=== PATIENT | male | born 1955 | race Caucasian/White ===

== ENCOUNTER 2019-08-14 14:07 | Observation (INO) ==
--- NOTE | 2019-08-14 17:14 | PROVIDER DOCUMENTATION ---
HPI-Screening - General Chief Complaint: Dizziness Stated Complaint: vertigo, needs fluids, treated for flu Time Seen by Provider: 08/14/19 16:56 Source: patient Allergies/Adverse Reactions: Allergies Allergy/AdvReac Type Severity Reaction Status Date / Time Penicillins Allergy Fever Verified 08/20/15 22:30 erythromycin base AdvReac NAUSEA/VOMI Verified 08/20/15 22:30 TING Home Medications: Home Medication List Medication Instructions Recorded Confirmed Last Taken Type Aspirin [Aspirin EC] 81 mg PO DAILY 08/20/15 08/20/15 08/20/15 History Carvedilol 12.5 mg PO DAILY 08/20/15 08/20/15 08/20/15 History Colchicine [Colcrys] 1 tab PO DAILY 08/20/15 08/20/15 08/20/15 History Liraglutide [Victoza] 0.6 mg IM DAILY 08/20/15 08/20/15 08/20/15 History Metformin [Glucophage] 1,000 mg PO BID 08/20/15 08/20/15 08/20/15 History Cephalexin [Keflex] 500 mg PO TID #30 cap 12/17/17 Unknown Rx Hydrocodone/Acetaminophen 1 ea PO Q6H PRN #6 tab 12/17/17 Unknown Rx [Hydrocodon-Acetaminophen 5-325] Patient arrived via EMS?: No HPI: Patient is a 63 yowm who complains of dizziness and n/v/d since yesterday. States was diagnosed with influenza 1.5 weeks ago. States his pcp called in abx yesterday (Levaquin) because his cough was worsening. States he has a productive cough with yellow sputum. Pt has not started the Levaquin. Denies fever or any other complaints. Pt is non-toxic in appearance. Physical Exam-Screening - CONSTITUTIONAL General Appearance: alert, no apparent distress. negative: lethargic, slow to respond - EYES Eyes: PERRL/EOMI, pink conjunctivae - HEAD, EARS, NOSE, MOUTH & THROAT HENMT: normocephalic/atraumatic, moist mucous membranes, normal ENT inspection, TMs normal, pharynx normal - NECK Neck: full range of motion, supple, normal inspection - RESPIRATORY Respiratory: chest non-tender, lungs clear, normal breath sounds, no pleuratic chest pain, no respiratory distress, no accessory muscle use - CARDIOVASCULAR Cardiovascular: normal peripheral pulses, regular rate, rhythm, no gallop, no murmur - GASTROINTESTINAL (ABDOMEN) Abdominal Exam: normal bowel sounds, soft, tenderness (Mild diffuse). negative: guarding, rigid, rebound - SKIN Integumentary: normal color, warm/dry. negative: cyanosis, diaphoresis, jaundice, mottled, pallor - NEUROLOGIC Neurologic: grossly normal, no motor/sensory deficits - PSYCHIATRIC Psych/Mental Status: normal mood/affect, normal thought content, normal thought process, oriented x 3 Screening Depart - Departure ED Screening Disposition: Continued in ED for Treatment Referrals and Follow-Ups: Johnathon Hernandez MD [Primary Care Provider] - Attestation - Physician/ KAYY Attestation Patient care was provided by Advanced Practice Provider:: Yes Advanced Practice Provider:: Aria Fitzgerald Advanced Practice Provider documentation review:: The Mid-level provider documentation, treatment plan and medical decision making was reviewed by the physician who agrees with all treatment and medical decision making by the MLP. The physician spent face to face time with patient:: No Advanced Practice Provider documentation review:: Supervising physician onsite and consulted in the evaluation and care of this patient. The physician did not have a face to face encounter with the patient.
[2019-08-14] MEDS ORDERED: NS 1,000 ML IV ONE ×2 (17:16→19:25)
[2019-08-14] MEDS ORDERED: ANTIVERT PO ONE (17:16)
[2019-08-14] MEDS ORDERED: ZOFRAN IV ONE (17:16)
[2019-08-14 17:40] LABS: BASO# 0.03 X1000 (0.0-0.2); BASO% 0.2 % (0.0-0.8); EOS# 0.24 X1000 (0.0-0.7); HEMATOCRIT 42.7 % (42.0-52.0); HEMOGLOBIN 14.3 g/dL (14.0-18.0); IMM GRAN# 0.03 X1000 (0.0-0.04); IMM GRAN% 0.2 % (0.0-0.5); INR 0.92; LYMPH# 5.09 X1000 (1.2-3.4); MCH 27.1 PG (27-31); MCHC 33.5 g/dL (33-37); MONO# 0.78 X1000 (0.11-0.59); MONO% 6.4 % (1.7-9.3); MPV 12.9 FL (7.4-10.4); NEUT# 5.96 X1000 (1.4-6.5); NEUT% 49.2 % (42.2-75.2); PLT 197 X1000 (130-400); PROTIME 12.5 Seconds (11.0-16.0); RBC 5.27 XMIL (4.7-6.1); RDW 13.3 % (11.5-14.5); WBC 12.13 X1000 (4.8-10.8)
--- NOTE | 2019-08-14 17:59 | Diag Imaging Result Doc PS360 ---
EXAM: ANKLE COMPLETE RIGHT - 08/14/2019 HISTORY: fall, R ankle pain TECHNIQUE: Right ankle three views COMPARISON: None. FINDINGS: There is no fracture or dislocation identified. There is no other substantial abnormality identified. IMPRESSION: No evidence of fracture or dislocation. Electronically signed by Shaggy Wolff 08/14/2019 5:57 PM
--- NOTE | 2019-08-14 18:02 | Diag Imaging Result Doc PS360 ---
EXAM: CHEST-2 VIEWS - 08/14/2019 HISTORY: cough, dizziness TECHNIQUE: Chest two views COMPARISON: 08/20/2015 FINDINGS: Heart size is normal. There are stable small right upper lobe granuloma and calcified tracheobronchial lymph nodes from old granulomatous disease. The lungs otherwise appear clear. There is no pleural effusion or pneumothorax identified. IMPRESSION: No evidence of acute disease. Electronically signed by [email or web address] 08/14/2019 6:00 PM
--- NOTE | 2019-08-14 19:30 | PROVIDER DOCUMENTATION ---
HPI-Abdominal Pain/GI Problem - General Chief Complaint: Dizziness Stated Complaint: vertigo, needs fluids, treated for flu Time Seen by Provider: 08/14/19 16:56 Source: patient Allergies/Adverse Reactions: Patient Allergies Allergy/AdvReac Type Severity Reaction Status Date / Time Penicillins Allergy Fever Verified 08/20/15 22:30 erythromycin base AdvReac NAUSEA/VOMI Verified 08/20/15 22:30 TING Home Medications: Home Medication List Medication Instructions Recorded Confirmed Last Taken Type Aspirin [Aspirin EC] 81 mg PO DAILY 08/20/15 08/20/15 08/20/15 History Carvedilol 12.5 mg PO DAILY 08/20/15 08/20/15 08/20/15 History Colchicine [Colcrys] 1 tab PO DAILY 08/20/15 08/20/15 08/20/15 History Liraglutide [Victoza] 0.6 mg IM DAILY 08/20/15 08/20/15 08/20/15 History Metformin [Glucophage] 1,000 mg PO BID 08/20/15 08/20/15 08/20/15 History Cephalexin [Keflex] 500 mg PO TID #30 cap 12/17/17 Unknown Rx Hydrocodone/Acetaminophen 1 ea PO Q6H PRN #6 tab 12/17/17 Unknown Rx [Hydrocodon-Acetaminophen 5-325] - History of Present Illness-ABD Nature of Presenting Problems: Patient is a 63 year old white male with history of diabetes, recently treated for influenza, who presents with nausea,vomiting, and diarrhea for past week. Currently is unable to keep any liquids down. Patient now complains of dizziness "room spinning" since today. Followed by Dr. Hernandez. Onset/Duration: reports: 1 week ago Timing: reports: still present Review of Systems - Adult - REVIEW OF SYSTEMS - ADULT Constitutional: denies: chills, fever Eyes: reports: no symptoms reported Ears, Nose, Mouth & Throat: reports: no symptoms reported Cardiovascular: denies: chest pain Respiratory: denies: shortness of breath Gastrointestinal: reports: see HPI, diarrhea, nausea, vomiting Genitourinary: reports: no symptoms reported Musculoskeletal: reports: no symptoms reported Integumentary: reports: no symptoms reported Neurological: reports: no symptoms reported Psychiatric: reports: no symptoms reported Endocrine: reports: no symptoms reported Hematologic/Lymphatic: reports: no symptoms reported Allergic/Immunologic: reports: no symptoms reported All Other Systems: Reviewed and Negative Past History - Adult - PAST MEDICAL HISTORY-ADULT Review of Records: reports: Old Records Reviewed, Nursing Assessment Review, Medications Reviewed, Social history reviewed & non-contributory. Major Childhood Illnesses: reports: denies history Cardiovascular: reports: HTN Respiratory: reports: asthma Musculoskeletal: reports: chronic pain (Back), other (gout) Neurological: reports: denies history Psychiatric: reports: denies history Endocrine/Immune: reports: Diabetes Diabetes Type: Type 2 Additional History: Gout - PRIOR SURGERIES/PROCEDURES Surgical/Procedure History: reports: back/neck (Neck), other ([place] teeth) - PRIOR HOSPITALIZATIONS Prior Hospitalizations: reports: none - IMMUNIZATION STATUS Childhood Immunizations: See Nurse Assessment Flu Vaccine: See Nurse Assessment Physical Exam-General - CONSTITUTIONAL General Appearance: alert, no apparent distress, obese, other (ambulatory, semimoist membranes) - EYES Eyes: PERRL/EOMI, other (horizontal nystagmus) - NECK Neck: supple - RESPIRATORY Respiratory: lungs clear - CARDIOVASCULAR Cardiovascular: regular rate, rhythm - GASTROINTESTINAL (ABDOMEN) Abdominal Exam: non tender, soft - MUSCULOSKELETAL Back Exam: normal inspection Extremity: non-tender Peripheral Pulses: radial (R): 2+, radial (L): 2+ - SKIN Integumentary: normal color, warm/dry - NEUROLOGIC Neurologic: grossly normal - PSYCHIATRIC Psych/Mental Status: oriented x 3, anxious Progress - PLAN OF CARE/RESULTS Progress/Plan/Lab Results: Vital Signs - 8 hr 08/14/19 14:32 Temperature 98.2 F Pulse Rate 100 H Respiratory Rate 20 Blood Pressure 135/82 O2 Sat by Pulse Oximetry 97 Laboratory Results - last 24 hr 08/14/19 08/14/19 08/14/19 14:40 14:40 14:40 WBC 12.13 H RBC 5.27 Hgb 14.3 Hct 42.7 MCV 81.0 MCH 27.1 MCHC 33.5 RDW Std Deviation 13.3 Plt Count 197 MPV 12.9 H Immature Gran % (Auto) 0.2 Neut % (Auto) 49.2 Lymph % (Auto) 42.0 Cameron % (Auto) 6.4 Eos % (Auto) 2.0 Baso % (Auto) 0.2 Immature Gran # (Auto) 0.03 Neut # (Auto) 5.96 Lymph # (Auto) 5.09 H Cameron # (Auto) 0.78 H Eos # (Auto) 0.24 Baso # (Auto) 0.03 PT 12.5 INR 0.92 PTT (Actin FS) 28.6 Orders Category Date Time Status ED: Orthostatic Vital Signs (E DIRECTED Care 08/14/19 17:17 Active Nursing- Obtain EKG ONCE Care 08/14/19 17:16 Active ANKLE COMPLETE RIGHT [RAD] Stat Exams 08/14/19 17:11 Completed CHEST-2 VIEWS [RAD] Stat Exams 08/14/19 17:16 Completed CBC WITH DIFF [HEME] Stat Lab 08/14/19 14:40 Completed COMPREHENSIVE METABOLIC PANEL [CHEM] Stat Lab 08/14/19 17:15 Ordered INFLUENZA SCREEN A/B Stat Lab 08/14/19 17:16 Uncollected PROTIME WITH INR [COAG] Stat Lab 08/14/19 14:40 Completed PTT [COAG] Stat Lab 08/14/19 14:40 Completed TROPONIN T HIGH SENSITIVITY Stat Lab 08/14/19 17:16 Ordered 0.9% Sodium Chloride Inj [Ns] 1,000 ml Med 08/14/19 17:16 Discontinued IV 999 mls/hr Meclizine [Antivert] Med 08/14/19 17:16 Discontinued 25 mg PO NOW ONE Ns 1000 ml IV Bolus X1 Med 08/14/19 19:25 Ordered 0.9% Sodium Chloride Inj [Ns] 1,000 ml IV 999 mls/hr Ondansetron [Zofran] Med 08/14/19 17:16 Discontinued 4 mg IV NOW ONE EKG [EKG] Stat Ther 08/14/19 17:16 Ordered Result Diagrams: 08/14/19 14:40 08/14/19 14:40 - EKG 1 Time of EKG reading by physician:: 20:31 EKG Read and Signed by:: Martín Vargas Rate: 91 Rhythm: NSR VA Interval: shortened Comments: no STEMI - CONSULTS/PCP/HOSPITALIST Notification #1 *Consult/PCP/Hospitalist*: Dr. Rod, hospitalist Time Discussed: 20:45 Consult Disposition: Admit Departure - Departure Date of Disposition Decision: 08/14/19 Time of Disposition Decision: 20:50 DIAGNOSIS: Dehydration, Vertigo, Elevated troponin, Shortened VA interval Disposition: ADMITTED INPATIENT 09 Certified Medical Emergency: Emergent Condition: Stable Referrals and Follow-Ups: Johnathon Hernandez MD [Primary Care Provider] - - Critical Care Note This patient required my direct & personal management of CC.: No Attestation - Physician/ KAYY Attestation Patient care was provided by Advanced Practice Provider:: No The physician spent face to face time with patient:: Yes Advanced Practice Provider documentation review:: Supervising physician onsite and consulted in the evaluation and care of this patient. The physician did have a face to face encounter with the patient. - HEART Score HEART Score: History: Slightly Suspicious HEART Score: ECG: Non-Specific Repolarization Disturbance/LBBB/PM HEART Score: Age: 45-65 Years HEART Score: Risk Factors for Atherosclerotic Disease: 1 or 2 Risk Factors HEART Score: Troponin: 1-3x Normal Limit Total HEART Score:: 4
[2019-08-14 19:49] LABS: AGAP 22; ALB/GLOB RATIO 1.4; ALBUMIN 4.3 g/dL (3.5-5.0); ALKALINE PHOSPHATASE 78 U/L (32-122); BUN 13 mg/dL (8-22); CALCIUM 10.3 mg/dL (8.8-10.2); CHLORIDE 92 mmol/L (98-107); COSMO 281; CREATININE 1.2 mg/dL (0.7-1.2); ESTIMATED GFR > 60; GLUCOSE 230 mg/dL (70-104); GOT 11 U/L (10-34); GPT 19 U/L (10-44); POTASSIUM 4.2 mmol/L (3.5-5.1); SODIUM 137 mmol/L (136-145); TCO2 23 mmol/L (25-35); TOTAL BILIRUBIN 0.36 mg/dL (0.20-1.00); TOTAL PROTEIN 7.3 g/dL (6.3-8.3)
[2019-08-14] MEDS ORDERED: ZOFRAN IV PRN (22:54)
--- NOTE | 2019-08-14 23:09 | HISTORY AND PHYSICAL ---
PRIMARY CARE PHYSICIAN: Dr. Johnathon Hernandez. CHIEF COMPLAINT: Nausea, vomiting, diarrhea x1 week. HISTORY OF PRESENTING ILLNESS: A 63-year-old male with a history of hypertension, diabetes mellitus type 2, who presented to emergency department with complaint of nausea, vomiting, diarrhea for the past 1 week. He states that he was feeling weak. The patient states that he was diagnosed with the flu and he was started on Tamiflu and also given antibiotics. He states that subsequently after that the diarrhea became worse and was more persistent and was not subsiding and subsequently he had come to the emergency department. In the ED he was evaluated and due to his presenting symptoms it was thought that we will place him for observation for further evaluation and management. At the time of my examination, patient denied any headache, fever, chills, chest pain, shortness of breath or any weight changes, but complained of nausea, vomiting, diarrhea. PAST MEDICAL HISTORY: Includes hypertension, diabetes mellitus type 2. PAST SURGICAL HISTORY: Cervical fusion, back surgery. ALLERGIES: Penicillin. CURRENT MEDICATIONS: Aspirin 81 mg p.o. daily, carvedilol 12.5 mg p.o. daily, hydrochlorothiazide 25 mg p.o. daily, Victoza 0.6 mg IM daily, metformin 1000 mg p.o. b.i.d. SOCIAL HISTORY: He is a former smoker. Denies any history of alcohol or illicit drug use. FAMILY HISTORY: No history of coronary artery disease. REVIEW OF SYSTEMS: Fourteen point review of system is listed as in HPI. Other systems negative. PHYSICAL EXAMINATION: GENERAL: Cooperative, friendly male. He is resting more comfortably now. VITAL SIGNS: Temperature 98.2 degrees, pulse 100, respirations 20, blood pressure 135/82. HEENT: Atraumatic, normocephalic. Extraocular movements intact. PERRLA. NECK: No masses. CHEST: Clear to auscultation. CARDIOVASCULAR: Regular rate and rhythm. ABDOMEN: Soft. Positive bowel sounds. EXTREMITIES: No edema. NEUROLOGIC: He is awake, alert, oriented x3. GENITOURINARY: No bladder distention. SKIN: Warm. LABORATORIES AND STUDIES: Sodium 137, potassium 4.2, chloride 92, CO2 is 23, BUN is 13, creatinine is 1.2, glucose is 230. WBCs 12.13, hemoglobin 14.3, hematocrit 42.7, platelets 197,000. Chest x-ray, no evidence of any acute disease. ASSESSMENT: This is a 63-year-old male with a history of hypertension, diabetes mellitus type 2, who had presented to emergency department with 1-week history of persistent nausea, vomiting, diarrhea. He was recently diagnosed with flu and was treated with Tamiflu and also put on antibiotics. He states that his diarrhea worsened after taking the antibiotics. The patient was evaluated in the emergency department. Due to his presenting conditions, he will require admission for further management. 1. Nausea, vomiting, diarrhea, possible viral enteritis. 2. Diabetes mellitus type 2. 3. Hypertension. PLAN: 1. We will admit patient to medical floor with telemetry. 2. We will continue with IV fluids, antiemetics, and other supportive treatment. 3. We will check stool studies. 4. Monitor blood glucose and put patient on sliding scale insulin regimen. 5. Monitor blood pressure. Resume antihypertensive agent. 6. We will put patient on DVT prophylaxis with SCDs. 7. We will continue to follow, reassess and make further recommendation based on patient's clinical course. cc: Сергей Rod MD
--- NOTE | 2019-08-15 00:53 | ED EKG INTERP ---
This chart was entered by Claudia Donaldson Scribe, acting as scribe for Martín Vargas MD. EKG Interpretation - EKG Time of EKG reading by physician:: 20:31 EKG Read and Signed by:: Martín Vargas EKG Interpretation (*Must complete 3 of following elements*): Abnormal Rate: 91 Rhythm: Sinus rhythm with short NH Comments: T wave abnormality, consider lateral ischemia Attestation - Physician/ KAYY Attestation Patient care was provided by Advanced Practice Provider:: No The physician spent face to face time with patient:: Yes Advanced Practice Provider documentation review:: Supervising physician onsite and consulted in the evaluation and care of this patient. The physician did have a face to face encounter with the patient. This chart was documented by the indicated scribe, (Claudia Donaldson Scribe) and accurately reflects the services I performed and decisions made by me, Martín Vargas MD, as attested by the provider's signature.
[2019-08-15] MEDS: NS 1,000 ML IV SCH ×5 (01:06→19:42)
[2019-08-15 08:16] LABS: BASO# 0.04 X1000 (0.0-0.2); BASO% 0.4 % (0.0-0.8); EOS# 0.25 X1000 (0.0-0.7); EOS% 2.7 % (0.0-10.0); HEMOGLOBIN 13.2 g/dL (14.0-18.0); IMM GRAN# 0.03 X1000 (0.0-0.04); IMM GRAN% 0.3 % (0.0-0.5); LYMPH# 3.66 X1000 (1.2-3.4); LYMPH% 39.2 % (20.5-51.1); MCH 27.4 PG (27-31); MCHC 33.8 g/dL (33-37); MCV 81.1 FL (81-99); MONO# 0.59 X1000 (0.11-0.59); MONO% 6.3 % (1.7-9.3); MPV 11.9 FL (7.4-10.4); NEUT# 4.76 X1000 (1.4-6.5); NEUT% 51.1 % (42.2-75.2); PLT 168 X1000 (130-400); RBC 4.81 XMIL (4.7-6.1); RDW 13.2 % (11.5-14.5); WBC 9.33 X1000 (4.8-10.8)
[2019-08-15 08:34] LABS: AGAP 13; BUN 13 mg/dL (8-22); CALCIUM 8.8 mg/dL (8.8-10.2); CHLORIDE 101 mmol/L (98-107); COSMO 284; CREATININE 1.2 mg/dL (0.7-1.2); ESTIMATED GFR > 60; GLUCOSE 184 mg/dL (70-104); SODIUM 140 mmol/L (136-145); TCO2 26 mmol/L (25-35)
[2019-08-15] MEDS: COREG PO SCH (08:38)
[2019-08-15] MEDS: HYDROCHLOROTHIAZIDE PO SCH (08:38)
[2019-08-15] MEDS: ASPIRIN EC PO SCH (08:38)
--- NOTE | 2019-08-15 09:44 | EKG Report ---
Test Performed on : 08/14/2019 8:30:00 PM Test Reason : dizziness Blood Pressure : / mmHG Vent. Rate : 091 BPM Atrial Rate : 091 BPM P-R Int : 108 ms QRS Dur : 086 ms QT Int : 378 ms P-R-T Axes : 036 -27 128 degrees QTc Int : 464 ms Sinus rhythm. with short MN T wave abnormality, consider lateral ischemia Abnormal ECG When compared with ECG of 21-AUG-2015 04:01, aberrant conduction. is no longer present Unconfirmed Result
--- NOTE | 2019-08-15 12:13 | PROGRESS NOTE ---
DATE: 08/15/2019 INTERVAL HISTORY: No acute events overnight. Mr. Ospina was admitted for suspected viral gastroenteritis. In the morning time, Mr. Ospina is feeling better. He denies any more nausea, vomiting. He has had a couple of loose bowel movements, but he denies any abdominal pain. His is currently at bedside. He denies any fevers, chills, chest pain, shortness of breath or cough. VITALS: Temperature 98.4 degrees, pulse 98, respiratory 17, blood pressure 148/86. He is saturating 99% on room air. PHYSICAL EXAMINATION: Mouth: Oral cavity has mild pharyngeal congestion. Lungs: Air entry bilaterally equal. No wheeze, rhonchi, or crackles. Cardiovascular: S1, S2 normal. No murmur, rub, or gallop. Abdomen: Soft, nontender. Active bowel sounds. Extremity: No lower extremity edema. Neurologic: He is alert and oriented x3. LABS: Resolution of leukocytosis with WBC of 9000, hemoglobin 13.2, platelet 168. BUN is 13, creatinine 1.2, blood glucose 174. His calcium is improved to 8.8. MICROBIOLOGY: Influenza screen was negative. Stool studies has been so far negative. C difficile antigen has not been collected, which I will order. ASSESSMENT AND PLAN: 1. Acute viral gastroenteritis after suspected influenza leading to nausea, vomiting, and diarrhea. Follow up Clostridium difficile antigen since patient was given antibiotics outpatient. Continue intravenous fluid resuscitation and start patient on a full liquid diet. I will give him intravenous Zofran as needed. 2. Essential hypertension. Resume his home carvedilol and hydrochlorothiazide. 3. History of non-insulin dependent diabetes mellitus. Continue his home insulin lispro, and he is also taking aspirin. 4. Disposition: I will monitor patient overnight and follow up with repeat electrolytes tomorrow as I monitor him to tolerate full liquid diet. Accordingly, I would anticipate discharging in the next 24 hours. Stool Clostridium difficile antigen is pending. Plan of care is discussed with the patient and his at bedside. Their questions have been satisfactorily answered. He has completed treatment for presumed influenza about 5 days prior to current presentation, though the flu screen was negative. cc: Jeff Hodges MD
[2019-08-15] MEDS: HUMALOG SUBQ SCH ×3 (15:06→21:11)
[2019-08-16] MEDS: HUMALOG SUBQ SCH ×2 (06:22→11:46)
[2019-08-16 08:56] LABS: AGAP 12; BUN 8 mg/dL (8-22); CHLORIDE 101 mmol/L (98-107); COSMO 280; ESTIMATED GFR > 60; GLUCOSE 177 mg/dL (70-104); POTASSIUM 3.9 mmol/L (3.5-5.1); SODIUM 139 mmol/L (136-145); TCO2 26 mmol/L (25-35)
[2019-08-16] MEDS: ASPIRIN EC PO SCH (10:37)
[2019-08-16] MEDS: HYDROCHLOROTHIAZIDE PO SCH (10:37)
[2019-08-16] MEDS: COREG PO SCH (10:37)
[2019-08-16] MEDS ORDERED: TYLENOL PO ONE (11:16)
[2019-08-16] MEDS ORDERED: COREG PO ONE (13:36)
[2019-08-16 13:45] VITALS: BP 160/73
[2019-08-16] MEDS ORDERED: MOTRIN PO ONE (13:53)
--- NOTE | 2019-08-16 19:47 | DISCHARGE SUMMARY ---
ADMISSION DATE: 08/14/2019 DISCHARGE DATE: 08/16/2019 DISCHARGE DISPOSITION: Home. He was advised to have the rest of 3 to 4 days considering his resolving viral gastroenteritis as well as acute gouty arthritis affecting the right foot. Hemodynamically stable. He denies any chest pain, shortness of breath, nausea, vomiting. He has not had any vomiting since coming onto the floor. His diarrhea is improving. He is still having 2 to 3 loose bowel movements every day. However, the consistency has been becoming increasingly more towards becoming solid. DISCHARGE DIAGNOSES: 1. Acute viral gastroenteritis after suspected influenza leading to nausea, vomiting, diarrhea. 2. Essential hypertension for which his home medications were uptitrated. 3. Acute gouty arthritis affecting right foot. OTHER DIAGNOSES: 1. History of noninsulin-dependent diabetes mellitus. 2. History of essential hypertension. VITALS AT THE TIME OF DISCHARGE: Temperature 98 degrees, pulse 92, respiratory 18, blood pressure 160/73 he is saturating 99% on room air discharge. PHYSICAL EXAMINATION: Oral cavity is moist. Air entry bilaterally equal. No wheeze, rhonchi, crackles. Cardiovascular: S1, S2 normal. No murmur or gallop. Abdomen: Soft, nontender. Hyperactive bowel sounds. He has slight warmth and significant tenderness affecting right ankle as compared to left. DISCHARGE MEDICATION: 1. Metformin 1000 mg in the morning time, 500 mg at nighttime. 2. Hydrochlorothiazide 25 mg daily. 3. Liraglutide 0.6 mg intramuscular daily. 4. Aspirin 81 mg daily. 5. Carvedilol 25 mg b.i.d., the dose was increased from 12.5 mg which was his home dose. LABS: At the time of hospital admission and discharge: WBC 9000, which improved to 12,000 on presentation, hemoglobin 13.2, platelet 168,000. His chloride improved from 92 to 101, BUN 8, creatinine 1, blood glucose 260. MICROBIOLOGY: C. difficile antigen and toxin were negative. Stool culture preliminary report was negative. Influenza screen on admission was negative. SIGNIFICANT IMAGING: During hospital admission ankle x-ray on August 14 did not have evidence of fracture or dislocation next chest x-ray on presentation did not have any acute disease next. HOSPITAL COURSE SUMMARY: Mr. Ospina is a 63-year-old man who initially presented on 08/14/2019 with chief complaints of nausea, vomiting, and diarrhea of about 1 weeks duration. Apparently, patient was diagnosed with influenza about a week ago and had completed treatment. However, after completion of the treatment, he did not feel well. He had started having nausea, vomiting, and diarrhea. He also had intermittent abdominal pain apparently at the time of treatment for flu. Along with oseltamivir, he was also provided some antibiotics that he had completed the course of. His symptoms did not start getting better and they were persistent, so he decided to come to the hospital emergency room. In the ER, he was found to have temperature of 98.2 degrees, pulse of 100, respiratory rate of 20, blood pressure of 135/82, and he was saturating 97% on room air. His lab abnormalities were significant for leukocytosis of 12,000, hypochloremia with chloride of 92, and blood glucose of 175, so it was decided to admit him for further management. Though his initial troponins were elevated to 92, he did not have any chest pain or shortness of breath. He was started on intravenous fluid resuscitation. After intravenous fluid resuscitation and brief bowel rest, his symptoms improved and he was started on liquid diet. He was tolerating clear liquid diet well and it was advanced to full liquid diet. The next day during rounds, the patient's symptoms had become significantly better and he said he was ready to go home. His diarrhea frequency and amount had decreased. He was tolerating full liquid diet well. He also had started complaining of right foot pain for which x-ray of the foot was done which was unremarkable. Considering he has had prior history of gouty arthritis, it was diagnosed as acute gouty arthritis and he was given a dose of acetaminophen and ibuprofen at the time of discharge. He was advised to follow up with outpatient provider. At the time of discharge, he was advised to have rest for 3 to 4 days until his bowel movements get better, his gouty arthritis resolved, and he also has a scheduled follow-up 4 days after discharge. He was advised to resume work after seeing his regular physician. 25 minutes were spent in discharging this patient. Plan of care was discussed with the patient and his questions have been answered. Though at the time of admission, he did have a elevated troponin of 92, he did not have any chest pain or shortness of breath and EKG on admission had T-wave abnormality. He was advised to have a follow up with his regular physician. cc: Jeff Hodges MD
[2019-08-16] MEDS ORDERED: COREG PO SCH (21:00)
== END 2019-08-16 14:24 | disposition home or self-care (01) ==
LOC: ED 14:07 → EDIPHOLD 22:01 → INTOOBSV 22:01 → SUATTDRO 22:01 → 3N 08-15 02:50
PROVIDERS: ATTEND Internal Medicine